=== PATIENT | female | born 1995 | race Caucasian/White ===

== ENCOUNTER 2021-04-11 08:58 | Outpatient (REF) | payer OTHER, SELFPAY ==
--- NOTE | ~2021-04-11 | MR_ITS ---
MR BRAIN WITHOUT AND WITH CONTRAST CLINICAL INFORMATION: History of toxoplasmosis. Headache. COMPARISON: None available. TECHNIQUE: Multiplanar, multisequence MRI of the brain was obtained before and after the intravenous administration of 9 mL of Gadavist. FINDINGS: There is no pathologic intracranial enhancement. No parenchymal signal abnormality. There is no hydrocephalus, extra-axial surface collection, or herniation. The major flow voids at the skull base are preserved. There is no acute infarct on diffusion-weighted imaging. There is no intracranial hemorrhage on the gradient recalled echo acquisition. The midline structures are normal. There is 2 mm normal variant cerebellar tonsillar ectopia without true Chiari malformation. The cerebellum and brainstem are normal. The craniocervical junction is normal. Osseous marrow signal intensity is homogenous. The visualized soft tissues are unremarkable. MR/MR head/brain wo/w con IMPRESSION: Unremarkable MRI of the brain.
== END 2021-04-11 08:59 | disposition home or self-care (01) ==
LOC: HO.MRI 08:58
PROVIDERS: Visit Provider Internal Medicine
DX: H53.8 Other visual disturbances (principal); Z86.19 Personal history of other infectious and parasitic diseases; Z98.890 Other specified postprocedural states
CPT/HCPCS: 70553; A9585

== ENCOUNTER 2021-09-25 15:52 | Outpatient (REF) | payer OTHER, SELFPAY ==
--- NOTE | ~2021-09-25 | XR_ITS ---
EXAMINATION: XR KNEE, LEFT CLINICAL INFORMATION: Pain in the left knee COMPARISON: None TECHNIQUE: Three views of the left knee. This includes AP upright view. FINDINGS: No fracture or subluxation. Compartmental joint spaces are maintained. No joint effusion. The soft tissues are unremarkable. XR/XR knee LT 3V IMPRESSION: Normal left knee.
--- NOTE | ~2021-09-25 | XR_ITS ---
EXAMINATION: XR FOOT, LEFT CLINICAL INFORMATION: Pain in the left foot COMPARISON: None TECHNIQUE: AP, lateral, and oblique views of the left foot. FINDINGS: No fracture or dislocation. Alignment is anatomic. Joint spaces are maintained. The soft tissues are unremarkable. No ankle joint effusion. XR/XR foot LT 2V IMPRESSION: Normal left foot.
== END 2021-09-25 15:53 | disposition home or self-care (01) ==
LOC: HO.XRAY 15:52
PROVIDERS: PCP Internal Medicine; Visit Provider Internal Medicine
DX: M79.672 Pain in left foot (principal); M25.562 Pain in left knee
CPT/HCPCS: 73562; 73620

== ENCOUNTER 2022-02-26 11:45 | Outpatient (REF) | payer OTHER, SELFPAY ==
--- NOTE | ~2022-02-26 | XR_ITS ---
EXAMINATION: XR LUMBAR SPINE XR HIP, LEFT CLINICAL INFORMATION: Low back and left hip pain. COMPARISON: None TECHNIQUE: 3 views lumbar spine, 2 views left hip. FINDINGS: LUMBAR SPINE: There is some straightening of the lumbar spine. Disc spaces and vertebral body heights are well-maintained. There are some minimal endplate osteophytes superiorly L5 and L2 with an inferior endplate osteophyte at T12. No bony destructive lesions are seen. LEFT HIP: Some mild sclerotic changes present in the acetabulum superolaterally. No large osteophytes are seen. The joint space is maintained. No fractures or bony destructive lesions XR/XR lumbar spine 2-3V IMPRESSION: Minimal degenerative changes as described above.
--- NOTE | ~2022-02-26 | XR_ITS ---
EXAMINATION: XR LUMBAR SPINE XR HIP, LEFT CLINICAL INFORMATION: Low back and left hip pain. COMPARISON: None TECHNIQUE: 3 views lumbar spine, 2 views left hip. FINDINGS: LUMBAR SPINE: There is some straightening of the lumbar spine. Disc spaces and vertebral body heights are well-maintained. There are some minimal endplate osteophytes superiorly L5 and L2 with an inferior endplate osteophyte at T12. No bony destructive lesions are seen. LEFT HIP: Some mild sclerotic changes present in the acetabulum superolaterally. No large osteophytes are seen. The joint space is maintained. No fractures or bony destructive lesions XR/XR hip LT min 2V IMPRESSION: Minimal degenerative changes as described above.
== END 2022-02-26 11:46 | disposition home or self-care (01) ==
LOC: HO.XRAY 11:45
PROVIDERS: PCP Internal Medicine; Visit Provider Internal Medicine
DX: M25.552 Pain in left hip (principal); M54.50 Low back pain, unspecified
CPT/HCPCS: 72100; 73502

== ENCOUNTER 2022-10-02 09:02 | Outpatient (REF) | payer OTHER, SELFPAY ==
[2022-10-02 10:40] LABS: Alanine Aminotransferase 23 U/L (0-31); Albumin Level 4.2 g/dL (3.5-5.0); Alkaline Phosphatase 70 U/L (39-117); Anion Gap 14 (12-20); Aspartate Amino Transferase 19 U/L (5-31); Bilirubin Total 0.5 mg/dL (0.0-1.0); Blood Urea Nitrogen 6 mg/dL (9-16); Calcium 9.3 mg/dL (8.4-10.2); Carbon Dioxide 26 mmol/L (22-29); Chloride 103 mmol/L (96-108); Cholesterol 152 mg/dL; Estimated Glomerular Filt Rate > 60; Glucose Fasting 81 mg/dL (60-99); HDL Cholesterol 47 mg/dL; LDL Cholesterol Calculated 88 mg/dl; Potassium 4.4 mmol/L (3.3-5.1); Sodium 139 mmol/L (135-145); Total Protein 7.3 g/dL (6.5-8.0); Triglycerides 87 mg/dL
[2022-10-02 11:02] LABS: Thyroid Stimulating Hormone 0.99 uIU/mL (0.32-4.0)
== END 2022-10-02 09:03 | disposition home or self-care (01) ==
LOC: HO.LAB 09:02
PROVIDERS: PCP Internal Medicine; Visit Provider Internal Medicine
DX: Z00.00 Encounter for general adult medical examination without abnormal findings (principal); L65.9 Nonscarring hair loss, unspecified
CPT/HCPCS: 36415; 80053; 80061; 84443

== ENCOUNTER 2023-10-07 08:34 | Outpatient (AMB) | payer OTHER, SELFPAY ==
[2023-10-07 08:36] VITALS: BP 120/82; PULSE 92; O2SAT 97; BMI 29.0
--- NOTE | 2023-10-07 08:36 | A.OFFPC_ITS ---
Vital Signs 3 10/07/23 08:36 Height 5 ft 7 in Weight 185 lb BMI 29.0 BP 120/82 Blood Pressure Location Lt brachial Position Sitting Pulse 92 Pulse Source Pulse Oximeter Pulse Oximetry (%) 97 Oxygen Delivery Method Room Air Intake Visit Reasons: Post F/U Leasing Sales Consultant Required: Yes Leasing Sales Consultant Language: Azerbaijani Allergies No Known Allergies Allergy (Verified 10/07/23 08:43) Medication List - Last Reconciled 10/07/23 by KAREN Rolle acetaminophen mg PO ibuprofen 800 mg PO TID vit no.[id number] 28 mg iron- 800 mcg 1 tab PO DAILY Tobacco use date assessed: 10/07/23 HPI Post F/U 2 HPI0 Details Patient is a 28-year-old female presents today to follow-up . Patient of Dr. Barnes. Patient gave to a baby boy 08/15/2023 at [facility], she saw gynecology 1 month after . Patient reports that she stopped about 1 month after giving , although she still reports producing 2 oz of breast milk from bilateral breast. Reports right breast pain, sensitive to touch for the past 2 weeks. No nipple discharge. Reports recently was seen at [facility] due to colitis and she was discharged home with Tylenol. No shortness of breath or chest pain. 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 It was difficult to obtain history with wrapper cashier. [facility] Medical History Lumbar pain Left hip pain Primary insomnia Left foot pain Left knee pain Hair loss History of toxoplasmosis Left eye pain Overweight Surgical History Toxoplasmosis chorioretinitis of left eye Family History Mother No problems noted. Father No problems noted. Social History Housing: Apartment Alcohol intake: current Alcohol intake frequency: holidays/special occasions only Alcohol type: beer, wine and hard liquor Patient Tobacco Use Status: Never used Tobacco e-Cigarette/Vaping Use: Never Used Second Hand Smoke Exposure: No service: No Current occupational status: employed Current occupational exposures/hazards: No Cognitive needs: No Hearing needs: No Vision needs: Yes Questionnaire PHQ-9 Over the last 2 weeks, how often have you been bothered by any of the following problems? 1. Little interest or pleasure in doing things: not at all 2. Feeling down, depressed, or hopeless: not at all 3. Trouble falling or staying asleep, or sleeping too much: not at all 4. Feeling tired or having little energy: not at all 5. Poor appetite or overeating: not at all 6. Feeling bad about yourself - or that you are a failure or have let yourself or your family down: not at all 7. Trouble concentrating on things, such as reading the newspaper or watching television: not at all 8. Moving or speaking so slowly that other people could have noticed. Or the opposite - being so fidgety or restless that you have been moving around a lot more than usual: not at all 9. Thoughts that you would be better off or of hurting yourself in some way: not at all Total score: 0 Depression Screening Interpretation: Negative Depression Screening Done: Yes 35615 - PHQ-9 Billing: Yes Source: Developed by Drs. Isaac Pryor, Celena Davila, Juventino Fischer and colleagues, with an educational kathleen from [employer]. Thrive Questionnaire Date Thrive assessed: 08/28/22 AUDIT C Alcohol Use Questionnaire (AUDIT-C) 1. How often do you have a drink containing alcohol?: Monthly or less 2. How many drinks containing alcohol do you have on a typical day when you are drinking?: 1 or 2 3. How often do you have six or more drinks on one occasion?: Never Total Score: 1 Score Reviewed/Action Taken: No JENAE-7 AMB Questionnaire JENAE-7 Date JENAE - 7 assessed: 10/07/23 Feeling nervous, anxious, or on edge: 0 = Not at all Not being able to stop or control worryin = Not at all Worrying too much about different things: 0 = Not at all Trouble relaxin = Not at all Being so restless that it is hard to sit still: 0 = Not at all Becoming easily annoyed or irritable: 0 = Not at all Feeling afraid as if something awful might happen: 0 = Not at all Total JENAE-7 score (0-4 normal; 5-9 mild; 10-14 moderate; 15-21 severe): 0 Source: Developed by Drs. Isaac Pryor, Celena Davila, Juventino Fischer and colleagues, with an educational kathleen from [employer]. JENAE-7 Assessment Billing JENAE-7 Assessment Tool: JENAE-7 Assessment 11627 Review of Systems Const Denies body aches, Denies chills, Denies fever(s) and Denies headache(s) ENT Denies dizziness, Denies otalgia, Denies headache(s), Denies nasal discharge, Denies sinus pain and Denies sore throat Card Denies chest pain, Denies edema, Denies lightheadedness and Denies dyspnea Resp Denies cough, Denies dyspnea and Denies wheezing GI Denies abdominal pain Denies dysuria Musc Denies myalgias Skin/Breast Reports as per HPI and Denies rash Neuro Denies dizziness and Denies headache(s) Aller/Immun Denies wheezing Physical exam (Primary Care) Vital Signs: Last Vital Signs Pulse 92 10/07/23 08:36 BP 120/82 10/07/23 08:36 Pulse Ox 97 10/07/23 08:36 Oxygen Delivery Method Room Air 10/07/23 08:36 BMI result Body Mass Index 29.0 Tobacco/Smoking Status: Tobacco use Status Tobacco use date assessed 10/07/23 10/07/23 08:41 Patient Tobacco Use Status Never used Tobacco 10/07/23 08:41 e-Cigarette/Vaping Use Never Used 10/07/23 08:41 PHQ-9: PHQ-9 Score PHQ-9: Total score 0 10/07/23 08:41 Depression Screening Interpretation: Negative Thrive Assessment: Date of Thrive Assessment Date Thrive assessed 08/28/22 10/07/23 08:41 Const General: cooperative and no acute distress Orientation/consciousness: patient oriented x3 HENMT Head: Yes normocephalic and Yes atraumatic Throat: Yes posterior oropharynx normal Eyes General: appearance normal, both eyes and all related structures Neck Neck: Yes normal visual inspection and Yes full ROM Chest Chest/axillae images: 2 1. Right breast from 9 pm to 12 pm tender to touch, warmth noted, no lumps, no erythema Resp Effort & Inspection: normal respiratory effort and able to speak in complete sentences Auscultation: clear to auscultation bilaterally, no crackles, no rales, no rhonchi and no wheezes Cardio Rate: regular rate Rhythm: regular rhythm Heart sounds: S1 normal heart sound present and S2 normal heart sound present GI Auscultation: normal bowel sounds Skin General skin exam: no rashes or lesions noted Neuro General: patient oriented x3 Gait exam (Neuro): Normal gait present Extrem General: Yes full ROM Assessment and Plan Assessment & Plan (1) Breast pain, right: Code(s): N64.4 - Mastodynia Plan: Right breast from 9 pm to 12 pm tender to touch, warmth noted, no lumps, no erythema Suspect mastitis Will treat with cephalexin q.i.d. for 7 days Encouraged warm compresses p.r.n. Patient can continue breast feeding Follow-up with director religious education Keep appointment with PCP as scheduled Patient agreed with the plan Medications: New 2 cephalexin 500 mg PO QID 7 days 28 tabs 0RF N64.4 - Mastodynia Coding Level of Care Code Est Pt Level 3 (88825) Diagnoses Breast pain, right N64.4 Additional Codes JENAE-7 Assessment Billing - JENAE-7 Assessment Tool: JENAE-7 Assessment 31603 ([id number])
== END 2023-10-07 09:09 | disposition home or self-care (01) ==
PROVIDERS: PCP Internal Medicine; Visit Provider Nurse Practitioner Family
DX: N64.4 Mastodynia (principal)
CPT/HCPCS: 99213

== ENCOUNTER 2023-10-30 15:00 | Outpatient (AMB) | payer OTHER, SELFPAY ==
[2023-10-30 15:03] VITALS: BP 110/72; BMI 29.1
--- NOTE | 2023-10-30 15:03 | MHC.PC.OV ---
Vital Signs 10/30/23 15:03 Height 5 ft 7 in Weight 186 lb BMI 29.1 BP 110/72 Blood Pressure Location Lt brachial Position Sitting Intake Visit Reasons: physical exam Intake Note: Patient here for a physical exam Hair Specialist Required: No Accompanied by: Self / Same As Patient Allergies No Known Allergies Allergy (Verified 10/30/23 15:11) Medication List - Last Reconciled 10/30/23 by Bee White MD vit no.[id number] 28 mg iron- 800 mcg 1 tab PO DAILY Tobacco use date assessed: 10/07/23 Dental Screening Dental Screen Date: 10/30/23 Did you have a dental visit in the last 12 months?: Yes Did you have a dental problem in the last 6 months where you did not have access to dental care?: No Was dental information given to patient?: Patient has dentist HPI HPI Comments History of Present Illness Details This is a 28-year-old female that comes for her physical exam. Has history of left eye toxoplasmosis and would like to see Ophthalmology because sometimes she has eye pain. Last Pap smear was 2022 as per patient was normal. No chest pain or shortness of breath. [facility] Medical History Lumbar pain Left hip pain Primary insomnia Left foot pain Left knee pain Hair loss History of toxoplasmosis Left eye pain Overweight Surgical History History of plastic surgery Toxoplasmosis chorioretinitis of left eye Family History Mother No problems noted. Father No problems noted. Social History Housing: Apartment Alcohol intake: current Alcohol intake frequency: holidays/special occasions only Alcohol type: beer, wine and hard liquor Patient Tobacco Use Status: Never used Tobacco e-Cigarette/Vaping Use: Never Used Second Hand Smoke Exposure: No service: No Current occupational status: employed Current occupational exposures/hazards: No Cognitive needs: No Hearing needs: No Vision needs: Yes Questionnaire Thrive Questionnaire Date Thrive assessed: 08/28/22 JENAE-7 AMB Questionnaire JENAE-7 Date JENAE - 7 assessed: 10/07/23 Source: Developed by Drs. Isaac Pryor, Celena Davila, Juventino Fischer and colleagues, with an educational kathleen from [employer]. Review of Systems Const All systems reviewed & are unremarkable except as noted in HPI and below Eyes Reports no additional complaints, Denies change in vision and Denies other visual disturbances Card Denies chest pain at rest, Denies chest pain with activity, Denies edema, Denies irregular heart rhythm, Denies claudication, Denies dyspnea, Denies dyspnea on exertion, Denies orthopnea, Denies paroxysmal nocturnal dyspnea and Denies slow heart rate Resp Denies cough, Denies dyspnea and Denies dyspnea on exertion GI Denies abdominal pain, Denies change in bowel habits, Denies excessive flatus, Denies nausea and Denies vomiting Denies urinary incontinence, Denies urinary hesitancy and Denies urinary urgency Musc Denies abnormal gait, Denies atrophy, Denies deformity and Denies limited range of motion Skin/Breast Denies bleeding lesions, Denies changing lesions and Denies rash Neuro Denies abnormal gait, Denies behavioral changes, Denies confusion and Denies lack of coordination Psych Denies behavioral changes and Denies confusion Physical exam (Primary Care) Vital Signs: Last Vital Signs BP 110/72 10/30/23 15:03 BMI result Body Mass Index 29.1 Tobacco/Smoking Status: Tobacco use Status Tobacco use date assessed 10/07/23 10/30/23 15:06 Patient Tobacco Use Status Never used Tobacco 10/30/23 15:06 e-Cigarette/Vaping Use Never Used 10/30/23 15:06 Thrive Assessment: Date of Thrive Assessment Date Thrive assessed 08/28/22 10/30/23 15:06 Const General: No confusion Orientation/consciousness: patient oriented x3 and No confusion HENMT Head: Yes normal to inspection, Yes normocephalic and Yes atraumatic Ears: external ears normal Eyes General: appearance normal, both eyes and all related structures Eyelids: Yes eyelids normal Conjunctivae: conjunctivae normal Neck Neck: Yes normal visual inspection and Yes supple Resp Effort & Inspection: normal respiratory effort Auscultation: clear to auscultation bilaterally Cardio Jugular venous distension: no JVD Rate: regular rate Rhythm: regular rhythm Heart sounds: S1 normal heart sound present and S2 normal heart sound present GI Inspection: Yes normal to inspection Palpation (GI): Soft to palpation and nontender Auscultation: normal bowel sounds Skin General skin exam: no rashes or lesions noted Neuro General: patient oriented x3, no focal motor deficits and No confusion Extrem General: Yes full ROM Psych Appearance: grossly normal Office Procedures Flu Questionnaire Does the patient have a severe egg allergy?: No Immunizations flu vacc [id number] 6mos up(PF) 60 mcg(15 mcgx4)/0.5 mL IM syringe Performing Provider: Bee White MD [facility] Documented (not given) by: JUAN CARLOS Walton on 10/30/23 15:10 Reason Not Given: Patient Refused Assessment and Plan Assessment & Plan (1) Physical exam: Code(s): Z00.00 - Encounter for general adult medical examination without abnormal findings Plan: Repeat in a year. Orders: Orders Influenza [id number] Immunization Today Z23 - Encounter for immunization Referrals Ophthalmology Referral H57.12 - Ocular pain, left eye, Z86.19 - Personal history of other infectious and parasitic diseases Coding Level of Care Code Est Pt Prev Care 18-39y(34049) Diagnoses Physical exam Z00.00 Time Spent (min) 31
== END 2023-10-30 15:25 | disposition home or self-care (01) ==
PROVIDERS: Visit Provider Internal Medicine
DX: Z00.00 Encounter for general adult medical examination without abnormal findings (principal); Z86.19 Personal history of other infectious and parasitic diseases
CPT/HCPCS: 99395

== ENCOUNTER 2024-05-24 13:07 | Outpatient (AMB) | payer OTHER, SELFPAY ==
[2024-05-24 13:14] VITALS: BP 104/66; PULSE 86
--- NOTE | 2024-05-24 13:14 | MHC.PC.OV ---
Vital Signs 05/24/24 13:14 Height 5 ft 7 in Weight 191 lb 8 oz BMI 30.0 BP 104/66 Blood Pressure Location Lt brachial Position Sitting Pulse 86 Pulse Source Pulse Oximeter Oxygen Delivery Method Room Air Intake Visit Reasons: body pains Intake Note: The patient is here for muscle pain throughout the body, primarily in the back, which has been ongoing for the past 6 months. 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 Accompanied by: Self / Same As Patient Allergies No Known Allergies Allergy (Verified 05/24/24 13:32) Medication List - Last Reconciled 05/24/24 by Bee White MD vit no.[id number] 28 mg iron- 800 mcg 1 tab PO DAILY Tobacco use date assessed: 05/24/24 Dental Screening Dental Screen Date: 05/24/24 Did you have a dental visit in the last 12 months?: Yes Did you have a dental problem in the last 6 months where you did not have access to dental care?: No Was dental information given to patient?: Patient has dentist HPI HPI Comments History of Present Illness Details This is a 29-year-old female that complains of thoracic spine pain, lumbar pain, bilateral knee pain and palpitations that started few months ago. No fever or rash. No previous trauma. Has full active range of motion. Able to walk with no assistive device. Will order x-ray, refer her to physical therapy and labs. EKG will be order for her palpitations. [facility] Medical History (Updated 05/24/24 @ 13:46 by Bee White MD) Lumbar pain Left hip pain Primary insomnia Left foot pain Left knee pain Hair loss History of toxoplasmosis Left eye pain Overweight Surgical History History of plastic surgery Toxoplasmosis chorioretinitis of left eye Family History Mother No problems noted. Father No problems noted. Social History Housing: Apartment Alcohol intake: current Alcohol intake frequency: holidays/special occasions only Alcohol type: beer, wine and hard liquor Patient Tobacco Use Status: Never used Tobacco e-Cigarette/Vaping Use: Never Used Second Hand Smoke Exposure: No service: No Current occupational status: employed Current occupational exposures/hazards: No Cognitive needs: No Hearing needs: No Vision needs: Yes Questionnaire PHQ-9 Over the last 2 weeks, how often have you been bothered by any of the following problems? 1. Little interest or pleasure in doing things: not at all 2. Feeling down, depressed, or hopeless: not at all 3. Trouble falling or staying asleep, or sleeping too much: not at all 4. Feeling tired or having little energy: not at all 5. Poor appetite or overeating: not at all 6. Feeling bad about yourself - or that you are a failure or have let yourself or your family down: not at all 7. Trouble concentrating on things, such as reading the newspaper or watching television: not at all 8. Moving or speaking so slowly that other people could have noticed. Or the opposite - being so fidgety or restless that you have been moving around a lot more than usual: not at all 9. Thoughts that you would be better off or of hurting yourself in some way: not at all Total score: 0 Depression Screening Interpretation: Negative Depression Screening Done: Yes 52413 - PHQ-9 Billing: Yes Source: Developed by Drs. Isaac Pryor, Celena Davila, Juventino Fischer and colleagues, with an educational kathleen from [employer]. Thrive Questionnaire Date Thrive assessed: 05/24/24 I am a: Patient What is your living situation today?: I have a steady place to live Within the past 12 months, did the food you bought not last and you didn't have the money to get more?: Never true Within the past 12 months, did you worry whether your food would run out before you got money to buy more?: Never true Do you have trouble paying for medicines?: No Do you have trouble getting transportation to medical appointments?: No Do you have trouble paying your heating and electricity bill?: No Do you have trouble taking care of your child, family member or friend?: No Do you have trouble with day-to-day activities such as bathing, preparing meals, shopping, managing finances, etc.?: No Are you currently unemployed and looking for a job?: No Are you interested in more education?: No Please select the resources that you would like help with: None Currently or been in a relationship where the following occur: No concerns reported THRIVE Score: 0 AUDIT C Alcohol Use Questionnaire (AUDIT-C) 1. How often do you have a drink containing alcohol?: Never 3. How often do you have six or more drinks on one occasion?: Never Total Score: 0 Score Reviewed/Action Taken: No JENAE-7 AMB Questionnaire JENAE-7 Date JENAE - 7 assessed: 05/24/24 Feeling nervous, anxious, or on edge: 0 = Not at all Not being able to stop or control worryin = Not at all Worrying too much about different things: 0 = Not at all Trouble relaxin = Not at all Being so restless that it is hard to sit still: 0 = Not at all Becoming easily annoyed or irritable: 0 = Not at all Feeling afraid as if something awful might happen: 0 = Not at all Total JENAE-7 score (0-4 normal; 5-9 mild; 10-14 moderate; 15-21 severe): 0 Source: Developed by Drs. Isaac Pryor, Celena Davila, Juventino Fischer and colleagues, with an educational kathleen from [employer]. JENAE-7 Assessment Billing JENAE-7 Assessment Tool: JENAE-7 Assessment 72455 Review of Systems Const All systems reviewed & are unremarkable except as noted in HPI and below Card Denies chest pain at rest, Denies chest pain with activity, Reports rapid heart rate, Denies edema, Denies irregular heart rhythm, Denies claudication, Denies dyspnea, Denies dyspnea on exertion, Denies orthopnea, Denies paroxysmal nocturnal dyspnea and Denies slow heart rate Resp Denies cough, Denies dyspnea and Denies dyspnea on exertion Musc Reports back pain, Denies atrophy, Denies deformity, Reports arthralgias and Denies limited range of motion Physical exam (Primary Care) Vital Signs: Last Vital Signs Pulse 86 05/24/24 13:14 BP 104/66 05/24/24 13:14 Oxygen Delivery Method Room Air 05/24/24 13:14 BMI result Body Mass Index 30.0 Tobacco/Smoking Status: Tobacco use Status Tobacco use date assessed 05/24/24 05/24/24 13:16 Patient Tobacco Use Status Never used Tobacco 07/01/24 13:14 e-Cigarette/Vaping Use Never Used 05/24/24 13:14 PHQ-9: PHQ-9 Score PHQ-9: Total score 0 05/24/24 13:24 Depression Screening Interpretation: Negative Thrive Assessment: Date of Thrive Assessment Date Thrive assessed 05/24/24 05/24/24 13:24 Currently or been in a relationship where the following occur: No concerns reported Resp Effort & Inspection: normal respiratory effort Auscultation: clear to auscultation bilaterally Cardio Jugular venous distension: no JVD Rate: regular rate Rhythm: regular rhythm Heart sounds: S1 normal heart sound present and S2 normal heart sound present Extrem General: Yes full ROM Assessment and Plan Assessment & Plan (1) Left knee pain: Code(s): M25.562 - Pain in left knee Qualifiers: Chronicity: chronic Qualified Code(s): M25.562 - Pain in left knee; G89.29 - Other chronic pain Plan: X-ray ordered. Referred to physical therapy. (2) Right knee pain: Code(s): M25.561 - Pain in right knee Qualifiers: Chronicity: chronic Qualified Code(s): M25.561 - Pain in right knee; G89.29 - Other chronic pain Plan: X-ray ordered. Start physical therapy. (3) Lumbar pain: Code(s): M54.50 - Low back pain, unspecified Plan: X-ray ordered. Start physical therapy. (4) Thoracic spine pain: Code(s): M54.6 - Pain in thoracic spine Plan: X-ray ordered. Start physical therapy. (5) Sinus tachycardia: Code(s): R00.0 - Tachycardia, unspecified Plan: EKG ordered. Orders: Orders XR knee LT 2V Today M25.562 - Pain in left knee XR lumbar spine 2-3V Today M54.50 - Low back pain, unspecified XR thoracic spine 2V Today M54.6 - Pain in thoracic spine Erythrocyte Sedimentation Rate Today M54.50 - Low back pain, unspecified Cyclic Citrullinated Peptide Today M54.50 - Low back pain, unspecified Comprehensive Met. Panel Today M54.50 - Low back pain, unspecified PT Evaluation and Treatment Today M25.561 - Pain in right knee Vitamin D 25-OH Total Today E55.9 - Vitamin D deficiency, unspecified Vitamin B12 and Folate Today E53.8 - Deficiency of other specified B group vitamins XR knee RT 2V Today M25.561 - Pain in right knee HLA B27 Today M54.50 - Low back pain, unspecified CRP High Sensitivity Today M54.50 - Low back pain, unspecified Rheumatoid Factor Today M54.50 - Low back pain, unspecified PT Evaluation and Treatment Today M54.50 - Low back pain, unspecified PT Evaluation and Treatment Today M54.6 - Pain in thoracic spine PT Evaluation and Treatment Today M25.562 - Pain in left knee ECG 12 lead EKG Today R00.0 - Tachycardia, unspecified Coding Level of Care Code Est Pt Level 4 (98531) Complex EM visit Add On G2211 Diagnoses Chronic pain of left knee M25.562; G89.29 Chronicity: chronic Chronic pain of right knee M25.561; G89.29 Chronicity: chronic Lumbar pain M54.50 Thoracic spine pain M54.6 Sinus tachycardia R00.0 Additional Codes JENAE-7 Assessment Billing - JENAE-7 Assessment Tool: JENAE-7 Assessment 62635 ([id number]) Time Spent (min) 20
== END 2024-05-24 13:38 | disposition home or self-care (01) ==
PROVIDERS: PCP Internal Medicine; Visit Provider Internal Medicine
DX: M25.562 Pain in left knee (principal); M25.561 Pain in right knee; M54.50 Low back pain, unspecified; M54.6 Pain in thoracic spine; R00.0 Tachycardia, unspecified
CPT/HCPCS: 99214; G2211

== ENCOUNTER 2024-05-28 09:28 | Outpatient (REF) | payer OTHER, SELFPAY ==
--- NOTE | ~2024-05-28 | XR_ITS ---
EXAMINATION: XR KNEE, BILATERAL CLINICAL INFORMATION: Bilateral knee pain COMPARISON: Left knee radiographs 09/25/2021 TECHNIQUE: Upright AP and lateral views of each knee FINDINGS: No joint effusions. No fracture or malalignment. No joint space narrowing, suspicious bone lesion or soft tissue calcification. XR/XR knee LT 2V IMPRESSION: Normal knees.
--- NOTE | ~2024-05-28 | XR_ITS ---
EXAMINATION: XR THORACOLUMBAR SPINE CLINICAL INFORMATION: Pain in thoracic spine COMPARISON: None available. TECHNIQUE: 2 views of the thoracic spine. FINDINGS: The vertebral alignment is normal. No intrinsic bony abnormality. The disc heights and neural foramina are well maintained. The endplates and posterior elements are normal. No fracture or subluxation. The surrounding prevertebral soft tissues are unremarkable. XR/XR thoracic spine 2V IMPRESSION: No compression fractures or subluxations are identified. The disc spaces are preserved. No endplate changes are seen. The prevertebral soft tissues are normal. The foramina are patent.
--- NOTE | ~2024-05-28 | XR_ITS ---
EXAMINATION: XR LUMBOSACRAL SPINE CLINICAL INFORMATION: Low back pain COMPARISON: Lumbar radiograph 02/26/2022 TECHNIQUE: Three views of the lumbosacral spine. FINDINGS: 5 nonrib-bearing lumbar vertebral bodies. Mild straightening of the lumbar spine. Anterior osteophytes along the endplates are noted at multiple levels, worst at L2. No compression deformity or spondylolisthesis. Joint spaces are maintained. Paravertebral soft tissue structures are within normal limits. XR/XR lumbar spine 2-3V IMPRESSION: Mild multilevel degenerative changes without neural foraminal stenosis. No compression deformity or spondylolisthesis.
--- NOTE | ~2024-05-28 | XR_ITS ---
EXAMINATION: XR KNEE, BILATERAL CLINICAL INFORMATION: Bilateral knee pain COMPARISON: Left knee radiographs 09/25/2021 TECHNIQUE: Upright AP and lateral views of each knee FINDINGS: No joint effusions. No fracture or malalignment. No joint space narrowing, suspicious bone lesion or soft tissue calcification. XR/XR knee RT 2V IMPRESSION: Normal knees.
--- NOTE | 2024-05-28 09:35 | ECG_ITS ---
Test Reason : cp Blood Pressure : / mmHG Vent. Rate : 072 BPM Atrial Rate : 072 BPM P-R Int : 154 ms QRS Dur : 084 ms QT Int : 408 ms P-R-T Axes : 050 044 009 degrees QTc Int : 446 ms Normal sinus rhythm Normal ECG No previous ECGs available Referred By: Bee White Electronically Signed By:ARIANNE CARUSO
[2024-05-28 11:21] LABS: Rheumatoid Factor < 13.0 IU/mL (<15.0)
[2024-05-28 11:27] LABS: Alanine Aminotransferase 22 U/L (0-31); Albumin Level 4.4 g/dL (3.5-5.0); Alkaline Phosphatase 61 U/L (39-117); Anion Gap 11 (12-20); Aspartate Amino Transferase 22 U/L (5-31); Bilirubin Total 0.5 mg/dL (0.0-1.0); Blood Urea Nitrogen 8 mg/dL (9-16); Calcium 9.1 mg/dL (8.4-10.2); Carbon Dioxide 28 mmol/L (22-29); Chloride 107 mmol/L (96-108); Estimated Glomerular Filt Rate > 60; Glucose Random 77 mg/dL (60-115); Potassium 3.7 mmol/L (3.3-5.1); Sodium 142 mmol/L (135-145)
[2024-05-28 11:33] LABS: Vitamin D 25-OH Total 26.1 ng/mL (>30)
[2024-05-28 11:36] LABS: Erythrocyte Sedimentation Rate 14 MM/HR (0-20)
[2024-05-28 11:44] LABS: Folate 13.3 ng/mL (> or = 4.0); Vitamin B12 841 pg/mL (200-900)
[2024-05-31 09:03] LABS: CRP High Sensitivity 2.3 mg/L
[2024-06-01 13:58] LABS: HLA B27 Negative (Negative)
[2024-06-01 14:18] LABS: Cyclic Citrullinated Peptide <16 UNITS
== END 2024-05-28 09:29 | disposition home or self-care (01) ==
LOC: HO.LAB 09:28
PROVIDERS: PCP Internal Medicine; Visit Provider Internal Medicine
DX: M54.50 Low back pain, unspecified (principal); E55.9 Vitamin D deficiency, unspecified; E53.8 Deficiency of other specified B group vitamins; R00.0 Tachycardia, unspecified; M25.562 Pain in left knee; M54.6 Pain in thoracic spine; M25.561 Pain in right knee
CPT/HCPCS: 36415; 72070; 72100; 73560; 80053; 82306; 82607; 82746; 85652; 86141; 86200; 86431; 86812; 93005

== ENCOUNTER → 2024-05-28 09:35 | Outpatient (BNV) | payer OTHER, SELFPAY | PROVIDERS: PCP Internal Medicine; Visit Provider Internal Medicine | DX: R07.9 Chest pain, unspecified (principal) | CPT/HCPCS: 93010 ==

== ENCOUNTER 2024-11-04 09:19 | Outpatient (AMB) | payer OTHER, SELFPAY ==
[2024-11-04 09:22] VITALS: BP 110/64; BMI 29.3
--- NOTE | 2024-11-04 09:22 | A.OFFPC_ITS ---
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 She is at 7 weeks of gestation and reports the last Pap smear was a long time ago. She denies current use of tobacco and notes alcohol consumption only on special occasions, which she has currently ceased due to . The patient has not experienced any chest pains, shortness of breath, or other concerning symptoms as of late. Her most recent laboratory evaluations were conducted in May, prior to her . Mentioned vaccinations include tetanus, administered the previous year, warranting follow-up for the next dose in 2032. She indicates the absence of cardiovascular symptoms such as chest pain or dyspnea, while gastrointestinal and genitourinary functioning is reported as normal. Assessment of her prior health maintenance reveals indications of past laboratory tests and pap smears which are due for follow-up. - Pap smear overdue, last conducted more than a year ago but up to date. - Tetanus vaccine administered last year ; next dose due in 2032 - Routine laboratory tests were last con ducted in May. [facility] Medical History Lumbar pain Left hip pain Primary insomnia Left foot pain Left knee pain Hair loss History of toxoplasmosis Left eye pain Overweight Surgical History History of plastic surgery Toxoplasmosis chorioretinitis of left eye Family History Mother No problems noted. Father No problems noted. Social History Housing: Apartment Alcohol intake: current Alcohol intake frequency: holidays/special occasions only Alcohol type: beer, wine and hard liquor Patient Tobacco Use Status: Never used Tobacco e-Cigarette/Vaping Use: Never Used Second Hand Smoke Exposure: No service: No Current occupational status: employed Current occupational exposures/hazards: No Cognitive needs: No Hearing needs: No Vision needs: Yes Questionnaire Thrive Questionnaire Date Thrive assessed: 05/24/24 JENAE-7 AMB Questionnaire JENAE-7 Date JENAE - 7 assessed: 05/24/24 Source: Developed by Drs. Isaac Pryor, Celena Davila, Juventino Fischer and colleagues, with an educational kathleen from [employer]. Review of Systems Const All systems reviewed & are unremarkable except as noted in HPI and below Card Denies chest pain at rest, Denies chest pain with activity, Denies edema, Denies irregular heart rhythm, Denies claudication, Denies dyspnea, Denies dyspnea on exertion, Denies orthopnea, Denies paroxysmal nocturnal dyspnea and Denies slow heart rate Resp Denies cough, Denies dyspnea and Denies dyspnea on exertion Musc Denies atrophy, Denies deformity and Denies limited range of motion Physical exam (Primary Care) Vital Signs: Last Vital Signs BP 110/64 11/04/24 09:22 BMI result Body Mass Index 29.3 BMI Assessment/Plan discussion: High BMI High, discussed plan: weight reduction, dietary and physical activity Tobacco/Smoking Status: Tobacco use Status Tobacco use date assessed 11/04/24 11/04/24 09:26 Patient Tobacco Use Status Never used Tobacco 11/04/24 09:26 e-Cigarette/Vaping Use Never Used 11/04/24 09:26 Thrive Assessment: Date of Thrive Assessment Date Thrive assessed 05/24/24 11/04/24 09:26 HENMT Head: Yes normal to inspection, Yes normocephalic and Yes atraumatic Ears: external ears normal Face and sinus: Yes sinuses nontender Eyes General: appearance normal, both eyes and all related structures Eyelids: Yes eyelids normal Conjunctivae: conjunctivae normal Neck Neck: Yes normal visual inspection and Yes supple Resp Effort & Inspection: normal respiratory effort Auscultation: clear to auscultation bilaterally Cardio Jugular venous distension: no JVD Rate: regular rate Rhythm: regular rhythm Heart sounds: S1 normal heart sound present and S2 normal heart sound present GI Inspection: Yes normal to inspection Palpation (GI): Soft to palpation and nontender Auscultation: normal bowel sounds Skin General skin exam: no rashes or lesions noted Neuro General: no focal motor deficits Extrem General: Yes full ROM Psych Appearance: grossly normal Office Procedures Flu Questionnaire Does the patient have a severe egg allergy?: No Immunizations Fluarix Triv [id number] (PF) 45 mcg (15 mcg x 3)/0.5 mL IM syringe Performing Provider: Bee White MD [place] [facility] [facility] Documented (not given) by: JUAN CARLOS Walton on 11/04/24 09:41 Reason Not Given: Patient Refused Coding Level of Care Code Est Pt Prev Care 18-39y(53215) Diagnoses Physical exam Z00.00 Time Spent (min) 30 Assessment & Plan Assessment & Plan (1) Physical exam: Code(s): Z00.00 - Encounter for general adult medical examination without abnormal findings Category: Medical Plan - Schedule routine laboratory tests with [facility] [employer] [facility] due to current - Arrange follow-up for Pap smear screening - Tetanus booster in 2022 Patient was informed and verbally consented to the use of an ambient scribe for clinic note documentation during this visit. During the visit, I addressed the importance of routine care and discussed the necessity for follow-up laboratory testing to monitor her health during . I explained that her cholesterol levels, if elevated, would not be treated with medications during . I emphasized the need for regular screenings, including Pap smear testing, due to its overdue status. We also reviewed the timeline for her next tetanus booster, confirming the requirement for 2032. The patient was advised to continue her current lifestyle modifications avoiding alcohol during and maintaining a smoke-free status. Orders: Orders Influenza [id number] Immunization Today Z23 - Encounter for immunization Patient Instructions: - Attend scheduled routine lab tests - Abstain from alcohol during - Continue non-smoking status - Schedule a Pap smear as discussed - Plan for tetanus booster in 2032
== END 2024-11-04 09:44 | disposition home or self-care (01) ==
PROVIDERS: PCP Internal Medicine; Visit Provider Internal Medicine
DX: Z00.00 Encounter for general adult medical examination without abnormal findings (principal); Z23 Encounter for immunization

== ENCOUNTER → 2024-11-04 09:19 | Outpatient (BNVA) | payer OTHER, SELFPAY | PROVIDERS: PCP Internal Medicine; Visit Provider Internal Medicine | DX: Z00.00 Encounter for general adult medical examination without abnormal findings (principal) | CPT/HCPCS: 90471; 99395 ==

== ENCOUNTER 2025-10-26 11:32 | Outpatient (AMB) | payer OTHER, SELFPAY ==
--- NOTE | 2025-10-26 11:38 | MHC.OFFVIS ---
Vital Signs 10/26/25 11:43 Height 5 ft 7 in Weight 210 lb BMI 32.9 BP 116/70 Blood Pressure Location Rt brachial Position Sitting Pulse 94 Pulse Source Pulse Oximeter Pulse Oximetry (%) 98 Oxygen Delivery Method Room Air Intake Visit Reasons: abdominal pain Intake Note: New pt for initial eval of possible colitis. CC; C/O abd pain s/p . Onset within 3 mos of giving to her 3rd child. Pt received PPI from provider in the [place] after she had surgery. Provider had hoped to protect her stomach and help relieve some of the pain. Pt last took it yesterday. Client Service Professional Required: Yes Client Service Professional Services: Client Service Professional Present Client Service Professional Name: Lorenzo (Provider only) Information Interpreted: clinical only Accompanied by: Self / Same As Patient Allergies No Known Allergies Allergy (Verified 11/04/24 09:30) Medication List - Last Reconciled 10/26/25 by Trudy Mike CLUTCH INSPECTOR- cholecalciferol (vitamin D3) 25 mcg PO DAILY 90 days ketoconazole 2% topical omeprazole 40 mg PO DAILY vit [id number] 28 mg iron- 800 mcg 1 tab PO DAILY pyridoxine (vitamin B6) (Vitamin B-6) 25 mg PO TID HPI HPI abdominal pain: Details: 30-year-old female with a no significant past medical history except for sinus tachycardia, insomnia, history of toxoplasmosis, overweight, anxiety is here today for initial consultation. Patient reports that she had 2 episodes of colitis after delivering her babies. Both episodes happened in [facility]. Patient reports that 1st on was about 3 years ago after she had her son and 2nd 1 about few months ago. Patient recently had keloid surgery [facility] and was placed on antibiotic for [address] her on omeprazole 40 mg to protect her stomach. Patient reports that she has been taking it daily. In the past patient had severe epigastric pain specially after she delivered the baby the pain was in the upper abdomen. Patient reports the pain was sharp. Patient had CT scan done and it showed colitis. Patient reports she does not understand why it was colitis when her symptoms happen more in the stomach. Patient denies any nausea or vomiting. Denies any abdominal pain or discomfort. Denies any abdominal bloating. Patient otherwise reports to be feeling well. Currently patient's symptoms are suppressed as she is taking omeprazole. Patient denies dyspepsia, dysphagia or odynophagia. Denies melena, hematochezia, unintentional weight loss or ribbon like stools. [facility] Medical History Lumbar pain Left hip pain Primary insomnia Left foot pain Left knee pain Hair loss History of toxoplasmosis Left eye pain Overweight Surgical History (Updated 10/26/25 @ 11:43 by NAVEED Combs) [place] teeth removed History of plastic surgery Toxoplasmosis chorioretinitis of left eye Family History Mother No problems noted. Father No problems noted. Social History Housing: Apartment Alcohol intake: current Alcohol intake frequency: holidays/special occasions only Alcohol type: beer, wine and hard liquor Patient Tobacco Use Status: Never used Tobacco e-Cigarette/Vaping Use: Never Used Second Hand Smoke Exposure: No service: No Current occupational status: employed Current occupational exposures/hazards: No Cognitive needs: No Hearing needs: No Vision needs: Yes Review of Systems Const Denies weight gain and Denies weight loss ENT Reports no additional complaints, Denies dysphagia and Denies odynophagia Card Reports no additional complaints Resp Reports no additional complaints GI Reports abdominal pain (Epigastric), Denies belching, Denies melena, Denies bloating, Denies change in bowel habits, Denies dysphagia, Denies excessive flatus, Denies dyspepsia, Reports heartburn, Denies diarrhea, Denies loose stools, Denies nausea, Denies odynophagia and Denies vomiting Reports no additional complaints Musc Reports no additional complaints Neuro Reports no additional complaints Psych Reports no additional complaints Endo Reports no additional complaints Physical Exam Vital Signs: Last Vital Signs Pulse 94 10/26/25 11:43 BP 116/70 10/26/25 11:43 Pulse Ox 98 10/26/25 11:43 Oxygen Delivery Method Room Air 10/26/25 11:43 BMI result Body Mass Index 32.9 Const General: healthy appearing, no acute distress and well developed Nutritional Appearance: well nourished and obese Orientation/consciousness: patient oriented x3 Resp Effort & Inspection: normal respiratory effort, able to speak in complete sentences, no tracheal deviation and symmetric chest movement Auscultation: clear to auscultation bilaterally Cardio Rate: regular rate GI Inspection: Yes normal to inspection, No distended and Yes obesity Palpation (GI): Soft to palpation, not firm, nontender and No hepatosplenomegaly present Auscultation: normal bowel sounds General: Yes no CVA tenderness Back/Spine/Pelvis Back: no CVA tenderness Skin General skin exam: elasticity normal, turgor normal and dry skin Neuro General: patient oriented x3 Psych Appearance: grossly normal Mental Status: mental status grossly normal Assessment & Plan Assessment & Plan (1) Postprandial epigastric pain: Code(s): R10.13 - Epigastric pain (2) History of colitis: Code(s): Z87.19 - Personal history of other diseases of the digestive system (3) Postprandial abdominal bloating: Code(s): R14.0 - Abdominal distension (gaseous) Plan We will check H pylori in couple weeks when patient will be of PPI for minimum 14 days. We can schedule her in 5 weeks to make sure that she has been off of it. Patient will be reassessed in the office as well. Will check transglutaminase, lipase. Patient will be sent for barium enema to evaluate for reflux. Patient was encouraged to call our office if she will have any worsening symptoms. She is agreeable to current plan of care and verbalizes understanding of instructions. She was given the opportunity to ask questions and all questions answered. Thank you for allowing me to participate in her care Orders: Orders H Pylori Breath Test 10/26/25 K21.9 - Gastro-esophageal reflux disease without esophagitis Transglutaminase IgA 10/26/25 R10.9 - Unspecified abdominal pain Lipase 10/26/25 R10.9 - Unspecified abdominal pain FL barium enema 10/26/25 R10.13 - Epigastric pain Coding Level of Care Code New Pt Level 4 (78896) Diagnoses Postprandial epigastric pain R10.13 History of colitis Z87.19 Postprandial abdominal bloating R14.0 Time Spent (min) 50 Comment 35 minutes spent with patient and additional 15 minutes spent reviewing her records
[2025-10-26 11:43] VITALS: BP 116/70; PULSE 94; O2SAT 98; BMI 32.9
--- OUTSIDE RECORDS SUMMARY | 2025-10-26 13:59 | XMS_ITS | Clinical Summary ---
Author Organization [facility] ity Address [address] [place] [address] Care Team Providers Care Ink Printer Name Role Phone Unavailable Primary Care Provider Unavailabl e Social History Tobacco Use Types Packs/Day Years Used Date Smoking Tobacco: Never Assessed Comments Unknown Sex and Gender Information Value Date Recorded Sex Assigned at Not on file Legal Sex Female 3:57 AM EST Gender Identity Not on file Sexual Orientation Not on file Plan of Treatment Health Maintenance Due Date Last Done Comments Hepatitis B Vaccines (1 of 3 - 19+ 3-dose series) 2014 Cervical Cancer Screening: P ap Smear 02/23/2016 HPV Vaccines (1 - 3-dose SCD M series) 2022 HIV Screening 10/27/2022 Hepatitis C Screening 10/27/2022 Social Influencers of Health Screening 10/27/2022 Depression Screening 11/24/2024 COVID-19 Vaccine (1 - 2024-2 6 season) 2025 Influenza Vaccine (#1) 2025 DTaP,Tdap,and Td Vaccines (2 - Td or Tdap) 05/05/2028 05/05/2018 RSV Immunization Adult Patie nts (1 - 1-dose 75+ series) 2070 HIB Vaccines Aged Out No longer eligi ble based on patient's age to complete this topic Hepatitis A Vaccines Aged Out No long er eligible based on patient's age to complete this topic IPV Vaccines Aged Out No longer eligi ble based on patient's age to complete this topic MMR Vaccines Aged Out No longer eligi ble based on patient's age to complete this topic Meningococcal ACWY Vaccine Aged Out N o longer eligible based on patient's age to complete this topic Meningococcal B Vaccine Aged Out No l onger eligible based on patient's age to complete this topic Pneumococcal Vaccine: Pediat rics (0 to 5 Years) and At-Risk Patients (6 to 49 Years) Aged Out No longer eligi ble based on patient's age to complete this topic RSV Immunization Patients Un zan 20 months Aged Out No longer eligible b ased on patient's age to complete this topic Varicella Vaccines Aged Out No longer eligible based on patient's age to complete this topic
== END 2025-10-26 12:49 | disposition home or self-care (01) ==
LOC: HO.HGI 11:32
PROVIDERS: PCP Internal Medicine; Visit Provider Nurse Practitioner Family
DX: R10.13 Epigastric pain (principal); Z87.19 Personal history of other diseases of the digestive system; R14.0 Abdominal distension (gaseous)
CPT/HCPCS: 99204

== ENCOUNTER → 2025-10-26 11:32 | Outpatient (BNVA) | payer OTHER, SELFPAY | PROVIDERS: PCP Internal Medicine; Visit Provider Nurse Practitioner Family | DX: O90.89 Other complications of the puerperium, not elsewhere classified (principal); R10.13 Epigastric pain; R14.0 Abdominal distension (gaseous); Z87.19 Personal history of other diseases of the digestive system | CPT/HCPCS: 99202 ==

== ENCOUNTER 2025-11-08 09:34 | Outpatient (AMB) | payer OTHER, SELFPAY ==
--- NOTE | 2025-11-08 09:37 | A.OFFPC_ITS ---
Vital Signs 11/08/25 09:40 Height 5 ft 6.54 in Weight 208 lb BMI 33.0 BP 102/64 Blood Pressure Location Rt brachial Position Sitting Respiration 12 Pulse 88 Pulse Source Pulse Oximeter Temp 97.9 F Temp Source Temporal Artery Scan Pulse Oximetry (%) 98 Oxygen Delivery Method Room Air Intake Visit Reasons: Annual Exam Steward/Stewardess Chief Cargo Vessel Required: No Accompanied by: Self / Same As Patient Allergies No Known Allergies Allergy (Verified 11/08/25 09:56) Medication List - Last Reconciled 11/08/25 by Bee White MD calcium carbonate 200 mg PO DAILY cholecalciferol (vitamin D3) 25 mcg PO DAILY 90 days ketoconazole 2% topical [belkis perez PO] omeprazole 40 mg PO DAILY vit no.[id number] 28 mg iron- 800 mcg 1 tab PO DAILY pyridoxine (vitamin B6) (Vitamin B-6) 25 mg PO TID Tobacco use date assessed: 11/08/25 Dental Screening Dental Screen Date: 11/08/25 Did you have a dental visit in the last 12 months?: Yes Did you have a dental problem in the last 6 months where you did not have access to dental care?: Yes Was dental information given to patient?: Patient has dentist HPI HPI Comments History of Present Illness Details The patient is a 30 year old female presenting for her physical exam complaining of tachycardia, hearing loss, knee pain, and medication refills. She has a past surgical history of tooth extraction, plastic surgery on her nose and chin, and surgery on her left eye. Her medical history is significant for osteoporosis. The patient reports experiencing tachycardia, noting her blood pressure was very low when checked by a friend. She also has concerns about her hearing, stating she has difficulty hearing and others have commented that she speaks loudly. Additionally, she has noticed her knee makes a lot of sound. She reports feeling cold frequently, which prompted her to request a CBC to check for anemia. She also feels fatigue and tired. The patient requires refills for omeprazole for acidity, vitamins, vitamin B6, calcium, vitamin D, and a shampoo, as she has run out of her medications. She does not have any known drug allergies. Both of her parents are alive. [facility] Medical History Lumbar pain Left hip pain Primary insomnia Left foot pain Left knee pain Hair loss History of toxoplasmosis Left eye pain Overweight Surgical History [place] teeth removed History of plastic surgery Toxoplasmosis chorioretinitis of left eye Family History (Updated 11/08/25 @ 10:02 by Bee White MD) Mother Asthma Father No problems noted. Social History Housing: House Alcohol intake: current Alcohol intake frequency: holidays/special occasions only Alcohol type: beer, wine and hard liquor Patient Tobacco Use Status: Never used Tobacco e-Cigarette/Vaping Use: Never Used Second Hand Smoke Exposure: No service: No Current occupational status: employed Current occupation: [employer] Current occupational exposures/hazards: No Cognitive needs: No Hearing needs: No Vision needs: Yes (rx glasses) Questionnaire PHQ-9 Over the last 2 weeks, how often have you been bothered by any of the following problems? 1. Little interest or pleasure in doing things: not at all 2. Feeling down, depressed, or hopeless: not at all 3. Trouble falling or staying asleep, or sleeping too much: not at all 4. Feeling tired or having little energy: not at all 5. Poor appetite or overeating: not at all 6. Feeling bad about yourself - or that you are a failure or have let yourself or your family down: not at all 7. Trouble concentrating on things, such as reading the newspaper or watching television: not at all 8. Moving or speaking so slowly that other people could have noticed. Or the opposite - being so fidgety or restless that you have been moving around a lot more than usual: not at all 9. Thoughts that you would be better off or of hurting yourself in some way: not at all Total score: 0 Depression Screening Interpretation: Negative Depression Screening Done: Yes 32128 - PHQ-9 Billing: Yes Source: Developed by Drs. Isaac Pryor, Celena Davila, Juventino Fischer and colleagues, with an educational kathleen from [employer]. Thrive Questionnaire Date Thrive assessed: 11/08/25 I am a: Patient What is your living situation today?: I have a steady place to live Within the past 12 months, did the food you bought not last and you didn't have the money to get more?: Never true Within the past 12 months, did you worry whether your food would run out before you got money to buy more?: Never true Do you have trouble paying for medicines?: No Do you have trouble getting transportation to medical appointments?: No Do you have trouble paying your heating and electricity bill?: No Do you have trouble taking care of your child, family member or friend?: No Do you have trouble with day-to-day activities such as bathing, preparing meals, shopping, managing finances, etc.?: No Are you currently unemployed and looking for a job?: No Are you interested in more education?: No THRIVE Score: 0 AUDIT C Alcohol Use Questionnaire (AUDIT-C) 1. How often do you have a drink containing alcohol?: Monthly or less 2. How many drinks containing alcohol do you have on a typical day when you are drinking?: 1 or 2 3. How often do you have six or more drinks on one occasion?: Never Total Score: 1 Score Reviewed/Action Taken: No JENAE-7 AMB Questionnaire JENAE-7 Date JENAE - 7 assessed: 11/08/25 Feeling nervous, anxious, or on edge: 1 = Several days Not being able to stop or control worryin = Several days Worrying too much about different things: 1 = Several days Trouble relaxin = Several days Being so restless that it is hard to sit still: 0 = Not at all Becoming easily annoyed or irritable: 1 = Several days Feeling afraid as if something awful might happen: 1 = Several days Total JENAE-7 score (0-4 normal; 5-9 mild; 10-14 moderate; 15-21 severe): 6 Source: Developed by Drs. Isaac Pryor, Celena Davila, Juventino Fischer and colleagues, with an educational kathleen from [employer]. JENAE-7 Assessment Billing JENAE-7 Assessment Tool: JENAE-7 Assessment 18060 Review of Systems Const All systems reviewed & are unremarkable except as noted in HPI and below Card Denies chest pain at rest, Denies chest pain with activity, Denies edema, Denies irregular heart rhythm, Denies claudication, Denies dyspnea, Denies dyspnea on exertion, Denies orthopnea, Denies paroxysmal nocturnal dyspnea and Denies slow heart rate Resp Denies cough, Denies dyspnea and Denies dyspnea on exertion GI Denies abdominal pain, Denies change in bowel habits, Denies excessive flatus, Denies nausea and Denies vomiting Physical exam (Primary Care) Vital Signs: Last Vital Signs Temp 97.9 F 11/08/25 09:40 Pulse 88 11/08/25 09:40 Resp 12 11/08/25 09:40 BP 102/64 11/08/25 09:40 Pulse Ox 98 11/08/25 09:40 Oxygen Delivery Method Room Air 11/08/25 09:40 BMI result Body Mass Index 33.0 BMI Assessment/Plan discussion: High BMI High, discussed plan: lifestyle, weight reduction, dietary and physical activity Tobacco/Smoking Status: Tobacco use Status Tobacco use date assessed 11/08/25 11/08/25 09:53 Patient Tobacco Use Status Never used Tobacco 11/08/25 09:53 e-Cigarette/Vaping Use Never Used 11/08/25 09:53 PHQ-9: PHQ-9 Score PHQ-9: Total score 0 11/08/25 09:58 Depression Screening Interpretation: Negative Thrive Assessment: Date of Thrive Assessment Date Thrive assessed 11/08/25 11/08/25 09:53 HENNE Head: Yes normal to inspection, Yes normocephalic and Yes atraumatic Ears: external ears normal Eyes General: appearance normal, both eyes and all related structures Eyelids: Yes eyelids normal Conjunctivae: conjunctivae normal Neck Neck: Yes normal visual inspection and Yes supple Resp Effort & Inspection: normal respiratory effort Auscultation: clear to auscultation bilaterally Cardio Jugular venous distension: no JVD Rate: regular rate Rhythm: regular rhythm Heart sounds: S1 normal heart sound present and S2 normal heart sound present GI Inspection: Yes normal to inspection Palpation (GI): Soft to palpation and nontender Auscultation: normal bowel sounds Skin General skin exam: no rashes or lesions noted Neuro General: no focal motor deficits Extrem General: Yes full ROM Psych Appearance: grossly normal Coding Level of Care Code Est Pt Level 4 (76869) Est Pt Prev Care 18-39y(15703) Diagnoses Physical exam Z00.00 Left knee pain M25.562 Right knee pain M25.561 Hearing loss H91.90 Fatigue R53.83 Additional Codes JENAE-7 Assessment Billing - JENAE-7 Assessment Tool: JENAE-7 Assessment 78955 ([id number]) PHQ-9 - 42394 - PHQ-9 Billing: Yes ([id number]) Time Spent (min) 36 Assessment & Plan Assessment & Plan (1) Physical exam: Code(s): Z00.00 - Encounter for general adult medical examination without abnormal findings Category: Medical (2) Left knee pain: Code(s): M25.562 - Pain in left knee Category: Medical (3) Right knee pain: Code(s): M25.561 - Pain in right knee Category: Medical (4) Hearing loss: Code(s): H91.90 - Unspecified hearing loss, unspecified ear Category: Medical (5) Fatigue: Code(s): R53.83 - Other fatigue Category: Medical Plan Plan 1. Physical exam Repeat in a year. Patient declines flu vaccine. Tdap up-to-date. Pap smear up-to-date. 1. Tachycardia To evaluate the patient's report of tachycardia and low blood pressure, an electrocardiogram (EKG) will be ordered. Additionally, a 24-hour Holter monitor will be ordered for a more in-depth analysis. 2. Hearing Loss Due to the patient's concern about decreased hearing, a referral for a hearing test will be placed. 3. Knee Pain For the patient's complaints of sounds in the knee, an X-ray and a referral to orthopedics will be ordered. 4. Fatigue A complete blood count (CBC) will be ordered to investigate the patient's symptom of feeling cold and rule out anemia. Orders: Orders ECG 12 lead EKG Today R00.0 - Tachycardia, unspecified XR knee RT 2V Today G89.29 - Other chronic pain, M25.561 - Pain in right knee Comprehensive [place]. Panel Fast Today R00.0 - Tachycardia, unspecified Complete Blood Count Auto Diff Today R00.0 - Tachycardia, unspecified, R53.83 - Other fatigue ECG holter monitor 24 hour Today R00.0 - Tachycardia, unspecified XR knee LT 2V Today G89.29 - Other chronic pain, M25.562 - Pain in left knee Lipid Panel Today E78.5 - Hyperlipidemia, unspecified Vitamin D 25-OH Total Today E55.9 - Vitamin D deficiency, unspecified Referrals Speech and Hearing Referral H91.90 - Unspecified hearing loss, unspecified ear Orthopedics Referral M25.561 - Pain in right knee, M25.562 - Pain in left knee Medications: Changed From omeprazole 40 mg PO DAILY To omeprazole 40 mg PO DAILY 90 caps 1RF 90 days From ketoconazole 2% topical To ketoconazole 2% 1 appl topical 2XW 120 mL 0RF 30 days
[2025-11-08 09:40] VITALS: BP 102/64; PULSE 88; RESP 12; TEMP 36.6; O2SAT 98; BMI 33.0
--- OUTSIDE RECORDS SUMMARY | 2025-11-08 11:16 | XMS_ITS | Clinical Summary ---
Author Organization [facility] ity Address [address] [place] [address] Care Team Providers Care Aerial Installer Name Role Phone Unavailable Primary Care Provider [...]
== END 2025-11-08 10:08 | disposition home or self-care (01) ==
LOC: HO.HMCH 09:35
PROVIDERS: PCP Internal Medicine; Visit Provider Internal Medicine
DX: Z00.00 Encounter for general adult medical examination without abnormal findings (principal); M25.562 Pain in left knee; M25.561 Pain in right knee; R53.83 Other fatigue; H91.90 Unspecified hearing loss, unspecified ear

== ENCOUNTER → 2025-11-08 09:34 | Outpatient (BNVA) | payer OTHER, SELFPAY | PROVIDERS: PCP Internal Medicine; Visit Provider Internal Medicine | DX: Z00.00 Encounter for general adult medical examination without abnormal findings (principal); M25.562 Pain in left knee; M25.561 Pain in right knee; H91.90 Unspecified hearing loss, unspecified ear; R53.83 Other fatigue | CPT/HCPCS: 96127; 99212; 99395 ==

== ENCOUNTER 2025-11-22 09:57 | Outpatient (REF) | payer OTHER, SELFPAY ==
--- NOTE | ~2025-11-22 | XR_ITS ---
EXAMINATION: XR KNEE 1-2 VIEWS RIGHT, XR KNEE 1-2 VIEWS LEFT HISTORY: M25.561 - Pain in right knee COMPARISON: Comparison is made with the prior examination dated 05/28/2024. FINDINGS: AP and lateral views of the bilateral knees are submitted. Osseous mineralization is normal. There is no fracture or dislocation. The joint spaces are preserved. The soft tissues are unremarkable. There is no joint effusion. XR/XR knee LT 2V IMPRESSION: Unremarkable examination of the bilateral knees. Electronically signed by: Isaac Chiang MD 11/22/2025 11:02 AM LOLITA
--- NOTE | ~2025-11-22 | XR_ITS ---
EXAMINATION: XR KNEE 1-2 VIEWS RIGHT, XR KNEE 1-2 VIEWS LEFT HISTORY: M25.561 - Pain in right knee COMPARISON: Comparison is made with the prior examination dated 05/28/2024. FINDINGS: AP and lateral views of the bilateral knees are submitted. Osseous mineralization is normal. There is no fracture or dislocation. The joint spaces are preserved. The soft tissues are unremarkable. There is no joint effusion. XR/XR knee RT 2V IMPRESSION: Unremarkable examination of the bilateral knees. Electronically signed by: Isaac Chiang MD 11/22/2025 11:02 AM LOLITA
[2025-11-22 10:35] LABS: MANUAL DIFF FLAG NO
[2025-11-22 10:51] LABS: Hematocrit 41.8 % (37.0-47.0); Hemoglobin 14.5 g/dl (12.0-16.0); Imm Gran Abs Auto 0.01 X10*3/uL (0.00-0.03); Imm Gran Pct Auto 0.2 % (0.0-0.4); Lymphocytes Absolute Auto 1.7 X10*3/uL (1.2-4.9); Mean Corpuscular HGB Conc 34.7 g/dl (31.0-35.0); Mean Corpuscular Hemoglobin 30.9 pg (27.0-33.0); Mean Corpuscular Volume 88.9 fL (80.0-98.0); NRBC Abs Auto 0.000 X10*3/uL (0.0-0.012); NRBC Pct Auto 0.0 /100WBC (0.0-0.2); Platelet Count 236 X10*3/uL (160-400); Red Blood Count 4.70 X10*6/uL (4.20-5.50); White Blood Count 4.6 X10*3/uL (4.8-10.8)
[2025-11-22 12:09] LABS: Alanine Aminotransferase 82 U/L (0-31); Albumin Level 4.6 g/dL (3.5-5.0); Alkaline Phosphatase 56 U/L (39-117); Anion Gap 14 (12-20); Aspartate Amino Transferase 49 U/L (5-31); Blood Urea Nitrogen 8 mg/dL (9-16); Calcium 9.1 mg/dL (8.4-10.2); Carbon Dioxide 24 mmol/L (22-29); Chloride 109 mmol/L (96-108); Cholesterol 146 mg/dL (<200); Estimated Glomerular Filt Rate > 60; HDL Cholesterol 39 mg/dL (>40); Lipase 16 U/L (8-78); Potassium 4.5 mmol/L (3.3-5.1); Sodium 142 mmol/L (135-145); Total Protein 8.1 g/dL (6.5-8.0); Triglycerides 81 mg/dL (<150)
--- OUTSIDE RECORDS SUMMARY | 2025-11-22 13:01 | XMS_ITS | Clinical Summary ---
Author Organization [facility] ity Address [address] [place] [address] Care Team Providers Care Forest Practices Field Coordinator Name Role Phone Unavailable Primary Care Provider [...]
--- OUTSIDE RECORDS SUMMARY | 2025-11-22 13:01 | XMS_ITS | Clinical Summary ---
Author Organization [facility] Address [address] [place] [address] Care Team Providers Care Event Staff Member Name Role Phone Chris Bautista Primary Care Provider [phone] Allergies No known active allergies Medications No known medications Social History Tobacco Use Types Packs/Day Years Used Date Smoking Tobacco: Never Alcohol Use Standard Drinks/Week Comments Not Asked 0 (1 standard drink = 0.6 oz pur e alcohol) Comments Unknown Sex and Gender Information Value Date Recorded Sex Assigned at Not on file Legal Sex Female 12:43 PM EST Gender Identity Not on file Sexual Orientation Not on file Last Filed Vital Signs Vital Sign Reading Time Taken Comments Blood Pressure 107/65 12/31/2016 1:56 PM EST Pulse 77 12/31/2016 1:56 PM EST Temperature 36.6 C (97.9 F) 12/31/2016 1:56 PM EST Respiratory Rate - - Oxygen Saturation 100% 12/31/2016 1:56 PM EST Inhaled Oxygen Concentration - - Weight 75.3 kg (166 lb) 12/31/2016 1:56 PM EST Height 168.9 cm (5' 6.5 ) 12/31/2016 1:56 PM EST Body Mass Index 26.39 12/31/2016 1:56 PM EST Plan of Treatment Not on file Insurance [facility] Care Teams Event Staff Member Relationship Specialty Start Date End Date Chris Bautista [address] [place] [id number] PCP - General 12/31/16
== END 2025-11-22 09:58 | disposition home or self-care (01) ==
LOC: HO.XRAY 09:57
PROVIDERS: Nurse Practitioner Family; PCP Internal Medicine; Visit Provider Internal Medicine
DX: M25.561 Pain in right knee (principal); M25.562 Pain in left knee; G89.29 Other chronic pain; E55.9 Vitamin D deficiency, unspecified; E78.5 Hyperlipidemia, unspecified; R00.0 Tachycardia, unspecified; R53.83 Other fatigue; R10.9 Unspecified abdominal pain
CPT/HCPCS: 36415; 73560; 80053; 80061; 82306; 83690; 85025; 86364

== ENCOUNTER → 2025-11-22 10:08 | Outpatient (BNV) | payer OTHER, SELFPAY | PROVIDERS: PCP Internal Medicine; Visit Provider Internal Medicine | DX: R00.0 Tachycardia, unspecified (principal) | CPT/HCPCS: 93010 ==

== ENCOUNTER → 2025-11-22 10:34 | Outpatient (BNV) | payer OTHER, SELFPAY | PROVIDERS: PCP Internal Medicine; Visit Provider Radiology Diagnostic Radiology | DX: M25.562 Pain in left knee (principal); M25.561 Pain in right knee | CPT/HCPCS: 73560 ==